=== PATIENT | female | born 1935 | race Caucasian/White ===

== ENCOUNTER → 2016-12-01 | Outpatient (CLI) | payer OTHER ==
[~2016-12-01] MED LIST: ALEN70TA5 PO; ASCO-96 PO; ASPI-496 PO; ENAL20TA PO; FOLI0.8T2 PO; HYDR1TAB16 PO; MULT-308 PO; SIMV10TA3 PO; VITA1TAB68 PO
== END | disposition home or self-care (01) ==
LOC: CFH 09:52 → EDSTATUS 10:15
PROVIDERS: ATTEND Family Medicine
DX: M75.101 Unspecified rotator cuff tear or rupture of right shoulder, not specified as traumatic (principal); S43.081A Other subluxation of right shoulder joint, initial encounter; M25.411 Effusion, right shoulder; M62.58 Muscle wasting and atrophy, not elsewhere classified, other site; X58.XXXA Exposure to other specified factors, initial encounter; Y93.89 Activity, other specified; Y92.89 Other specified places as the place of occurrence of the external cause; Y99.8 Other external cause status

== ENCOUNTER → 2017-06-22 | Outpatient (CLI) | payer OTHER ==
[~2017-06-22] MED LIST changes: +HYDR-3307 PO; +LATA2.5D3 RIGHTEYE; +SIMV40TA3 PO; +TRAM50TA2 PO; +areds PO
[2017-06-22 11:10] LABS: BASOPHILS # (AUTO) 0.08 x10^3/uL (0-0.1); BASOPHILS % (AUTO) 1 % (0-1); EOSINOPHILS # (AUTO) 0.19 x10^3/uL (0-0.4); EOSINOPHILS % (AUTO) 2 % (1-7); LYMPHOCYTES # (AUTO) 1.92 x10^3/uL (1-3.4); LYMPHOCYTES % (AUTO) 23 % (22-44); MD NO; MEAN CORPUSCULAR HEMOGLOBIN 28.7 pg (27.0-34.8); MEAN CORPUSCULAR HGB CONC 32.6 g/dL (32.4-35.8); MEAN CORPUSCULAR VOLUME 88.1 fL (80-100); MEAN PLATELET VOLUME 7.3 fL (7.4-10.4); MONOCYTES # (AUTO) 0.67 x10^3/uL (0.2-0.8); MONOCYTES % (AUTO) 8 % (2-9); NEUTROPHILS # (AUTO) 5.45 x10^3/uL (1.8-6.8); NEUTROPHILS % (AUTO) 66 % (42-75); PLATELET COUNT 292 x10^3/uL (130-400); RED BLOOD COUNT 4.89 x10^6/uL (3.82-5.3)
[2017-06-22 11:25] LABS: ALBUMIN 3.8 g/dL (3.4-5.0); ANION GAP 8 mmol/L (5-15); CALCIUM 9.7 mg/dL (8.5-10.1); CHLORIDE 107 mmol/L (98-107)
[2017-06-22 11:28] LABS: ALANINE AMINOTRANSFERASE 30 U/L (12-78); ALKALINE PHOSPHATASE 120 U/L (45-117); BILIRUBIN,TOTAL 0.5 mg/dL (0.2-1.0); CREATININE 1.02 mg/dL (0.55-1.02); TOTAL PROTEIN 7.8 g/dL (6.4-8.2)
== END | disposition home or self-care (01) ==
LOC: STAR 10:06
PROVIDERS: ATTEND Obstetrics & Gynecology Female Pelvic Medicine and Reconstructive Surgery
DX: K44.9 Diaphragmatic hernia without obstruction or gangrene (principal); N81.4 Uterovaginal prolapse, unspecified; K46.9 Unspecified abdominal hernia without obstruction or gangrene; R35.0 Frequency of micturition; N39.3 Stress incontinence (female) (male); I10 Essential (primary) hypertension
CPT/HCPCS: 36415; 71046; 80053; 85025; 93005

== ENCOUNTER 2017-07-18 12:09 | Day surgery (SDC) | payer OTHER ==
[2017-06-22 10:35] VITALS: BP 173/82
[~2017-07-18] VITALS: Ht 157.5 cm; Wt 68.3 kg
[~2017-07-18 12:09] MED LIST changes: +FENTANYL PF 250 MCG/5ML ONE; +MIDAZOLAM 1 MG/ML, 2ML ONE
[2017-07-18] MEDS ORDERED: BUPIVACAINE/PF 0.25% ONE (12:21)
[2017-07-18] MEDS ORDERED: ESTROGENS CONJUGATED VAG CRM 0.625MG/1G, 30GM ONE (12:21)
[2017-07-18] MEDS ORDERED: VANCOMYCIN 500 MG ONE (12:22)
[2017-07-18] MEDS ORDERED: THROMBIN 5,000 UNIT VIAL TP ONE ×2 (12:22→13:21)
[2017-07-18] MEDS ORDERED: EPINEPHRINE 1 MG/ML, 1ML ONE (12:22)
[2017-07-18] MEDS ORDERED: GENTAMICIN 80 MG/2 ML ONE (12:22)
[2017-07-18] MEDS ORDERED: LACTATED RINGERS 1,000 ML IV SCH ×2 (12:28→14:53)
[2017-07-18] MEDS ORDERED: LIDOCAINE 1%, 2ML SQ PRN (12:30)
[2017-07-18 12:32] VITALS: BP 173/82
[2017-07-18] MEDS ORDERED: PHENYLEPHRINE 10 MG/ML ONE (12:46)
[2017-07-18] MEDS ORDERED: ROCURONIUM 10MG/ML,5ML ONE (12:46)
[2017-07-18] MEDS ORDERED: SUCCINYLCHOLINE 20 MG/ML, 10ML ONE (12:46)
[2017-07-18] MEDS ORDERED: BUPIVACAINE/PF-EPI 0.25% 1:200K IM ONE (13:20)
[2017-07-18] MEDS ORDERED: ONDANSETRON 2MG/ML, 2ML ONE (13:52)
[2017-07-18] MEDS ORDERED: CEFAZOLIN 1,000 MG ONE (13:52)
[2017-07-18] MEDS ORDERED: PROPOFOL 10 MG/ML, 20ML ONE (13:52)
[2017-07-18] MEDS ORDERED: DEXAMETHASONE 4 MG/ML, 1ML ONE (13:52)
[2017-07-18] MEDS ORDERED: ALBUTEROL/IPRATROPIUM 2.5MG/0.5MG, 3 ML NPPB PRN (14:00)
[2017-07-18] MEDS ORDERED: MEPERIDINE/PF 25MG/0.5ML IVPush PRN (14:00)
[2017-07-18] MEDS ORDERED: LABETALOL 5MG/ML, 20ML IV PRN (14:00)
[2017-07-18] MEDS ORDERED: PROMETHAZINE 12.5 MG SUPP PR PRN (14:00)
[2017-07-18] MEDS ORDERED: HYDROmorphone 1 MG/ML, 1ML IV PRN (14:00)
[2017-07-18] MEDS ORDERED: hydrALAzine 20 MG/ML, 1ML IV PRN (14:00)
[2017-07-18] MEDS ORDERED: FENTANYL PF 100 MCG/2ML IV PRN (14:00)
[2017-07-18] MEDS ORDERED: ONDANSETRON 2MG/ML, 2ML IVPush PRN ×2 (14:00→15:00)
[2017-07-18] MEDS ORDERED: MIDAZOLAM 1 MG/ML, 2ML IV PRN (14:00)
[2017-07-18] MEDS ORDERED: ACETAMINOPHEN 325 MG TABLET PO PRN (14:00)
[2017-07-18] MEDS ORDERED: OXYcodone 5 MG/5 ML ORAL.SOL UDC PO PRN (14:00)
[2017-07-18] MEDS ORDERED: METRONIDAZOLE PMX 500MG/100ML 100 ML ONE (14:22)
[2017-07-18] MEDS ORDERED: VASOPRESSIN 20 UNIT/ML, 1ML ONE (14:25)
[2017-07-18] MEDS ORDERED: EPHEDRINE 50 MG/ML, 1ML ONE (14:25)
[2017-07-18] MEDS ORDERED: PROMETHAZINE 12.5 MG SUPP PR ONE (15:00)
[2017-07-18] MEDS ORDERED: HYDROcodone/APAP 5/325 TABLET PO PRN (15:00)
[2017-07-18] MEDS ORDERED: OXYcodone 5 MG/5 ML ORAL.SOL UDC ONE (15:07)
[2017-07-18] MEDS ORDERED: ACETAMINOPHEN 650 MG/20.3 ML UDC ONE (15:07)
== END 2017-07-18 17:10 ==
LOC: OUT 12:09
PROVIDERS: ATTEND Obstetrics & Gynecology Female Pelvic Medicine and Reconstructive Surgery
DX: N81.4 Uterovaginal prolapse, unspecified (principal); N39.46 Mixed incontinence; I10 Essential (primary) hypertension; E78.5 Hyperlipidemia, unspecified; G89.29 Other chronic pain; Z87.39 Personal history of other diseases of the musculoskeletal system and connective tissue; Z98.890 Other specified postprocedural states
CPT/HCPCS: 57120; 57288; 58120; 88305; J0171; J0330; J0690; J1100; J1580; J2370; J2405; J2704; J3010; J3370; J3490; J7120; J2250; C1771

== ENCOUNTER → 2018-09-11 | Outpatient (CLI) | payer MEDICARE ==
[~2018-09-11] MED LIST changes: -ALEN70TA5 PO; +ALEN70TA6 PO; -FENTANYL PF 250 MCG/5ML ONE; -MIDAZOLAM 1 MG/ML, 2ML ONE
[2018-09-11 15:39] LABS: BASOPHILS % (AUTO) 2 % (0-1); EOSINOPHILS # (AUTO) 0.16 x10^3/uL (0-0.4); EOSINOPHILS % (AUTO) 2 % (1-7); LYMPHOCYTES # (AUTO) 2.14 x10^3/uL (1-3.4); LYMPHOCYTES % (AUTO) 33 % (22-44); MD NO; MEAN CORPUSCULAR HEMOGLOBIN 28.2 pg (27.0-34.8); MEAN CORPUSCULAR HGB CONC 32.3 g/dL (32.4-35.8); MEAN CORPUSCULAR VOLUME 87.2 fL (80-100); MEAN PLATELET VOLUME 7.5 fL (7.4-10.4); MONOCYTES % (AUTO) 9 % (2-9); NEUTROPHILS % (AUTO) 55 % (42-75); PLATELET COUNT 296 x10^3/uL (130-400); RED BLOOD COUNT 4.88 x10^6/uL (3.82-5.3); RED CELL DISTRIBUTION WIDTH 15.2 % (9.6-15.2)
[2018-09-11 15:42] LABS: ALANINE AMINOTRANSFERASE 33 U/L (12-78); ALBUMIN 3.9 g/dL (3.4-5.0); ANION GAP 7 mmol/L (5-15); CALCIUM 9.8 mg/dL (8.5-10.1); CHLORIDE 108 mmol/L (98-107); CREATININE 1.27 mg/dL (0.55-1.02)
[2018-09-11 15:44] LABS: ALKALINE PHOSPHATASE 155 U/L (45-117); BILIRUBIN,TOTAL 0.2 mg/dL (0.2-1.0); TOTAL PROTEIN 7.4 g/dL (6.4-8.2)
== END | disposition home or self-care (01) ==
LOC: STAR 14:39
PROVIDERS: ATTEND Obstetrics & Gynecology Female Pelvic Medicine and Reconstructive Surgery
DX: K44.9 Diaphragmatic hernia without obstruction or gangrene (principal); I10 Essential (primary) hypertension
CPT/HCPCS: 36415; 71046; 80053; 85025; 93005

== ENCOUNTER 2018-09-25 13:01 | Day surgery (SDC) | payer MEDICARE ==
[~2018-09-25] VITALS: Ht 154.9 cm; Wt 63.6 kg
[~2018-09-25 13:01] MED LIST changes: +BUPIVACAINE/PF 0.25% ONE
[2018-09-25] MEDS ORDERED: LACTATED RINGERS 1,000 ML IV SCH ×2 (13:32→16:09)
[2018-09-25] MEDS ORDERED: FENTANYL PF 250 MCG/5ML ONE (13:47)
[2018-09-25] MEDS ORDERED: ROCURONIUM 10MG/ML,5ML ONE (13:49)
[2018-09-25] MEDS ORDERED: DEXAMETHASONE 4 MG/ML, 1ML ONE (13:49)
[2018-09-25] MEDS ORDERED: ONDANSETRON 2MG/ML, 2ML ONE (13:49)
[2018-09-25] MEDS ORDERED: PROPOFOL 10 MG/ML, 20ML ONE (13:49)
[2018-09-25] MEDS ORDERED: GLYCOPYRROLATE 0.2MG/1ML, 5ML ONE (13:49)
[2018-09-25] MEDS ORDERED: CEFOTETAN PMX 2GM/50ML 0 ML ONE (13:49)
[2018-09-25] MEDS ORDERED: NEOSTIGMINE 1 MG/ML, 10ML ONE (13:49)
[2018-09-25 13:55] VITALS: BP 182/81
[2018-09-25] MEDS ORDERED: GABAPENTIN 300 MG CAPSULE PO ONE (14:00)
[2018-09-25] MEDS ORDERED: ACETAMINOPHEN 500 MG TABLET PO ONE (14:00)
[2018-09-25] MEDS ORDERED: PHENYLEPHRINE 10 MG/ML ONE (14:59)
[2018-09-25] MEDS ORDERED: CEFAZOLIN 1,000 MG ONE (14:59)
[2018-09-25] MEDS ORDERED: HALOPERIDOL 5 MG/ML IV PRN (15:00)
[2018-09-25] MEDS ORDERED: FENTANYL PF 100 MCG/2ML IV PRN (15:00)
[2018-09-25] MEDS ORDERED: PROMETHAZINE 25 MG/ML, 1ML IM PRN ×2 (15:00)
[2018-09-25] MEDS ORDERED: MORPHINE SULFATE 4 MG/ML, 1ML IVPush PRN (15:00)
[2018-09-25] MEDS ORDERED: PROMETHAZINE 25 MG SUPP PR PRN (15:00)
[2018-09-25] MEDS ORDERED: ONDANSETRON ODT 8 MG PO PRN (15:00)
[2018-09-25] MEDS ORDERED: OXYcodone 5 MG/5 ML ORAL.SOL UDC PO PRN (15:00)
[2018-09-25] MEDS ORDERED: MEPERIDINE/PF 25MG/0.5ML IVPush PRN (15:00)
[2018-09-25] MEDS ORDERED: hydrALAzine 20 MG/ML, 1ML IV PRN (15:00)
[2018-09-25] MEDS ORDERED: ONDANSETRON 2MG/ML, 2ML IV PRN (15:00)
[2018-09-25] MEDS ORDERED: HYDROmorphone 2 MG/ML, 1ML IVPush PRN (15:00)
[2018-09-25] MEDS ORDERED: PROMETHAZINE 12.5 MG SUPP PR PRN (15:00)
[2018-09-25] MEDS ORDERED: PROMETHAZINE 25 MG/ML, 1ML IV PRN (15:00)
[2018-09-25] MEDS ORDERED: LABETALOL 5MG/ML, 20ML IV PRN (15:00)
[2018-09-25] MEDS ORDERED: THROMBIN 20,000 UNIT VIAL TP ONE (15:21)
[2018-09-25] MEDS ORDERED: HYDROcodone/APAP 5/325 TABLET PO PRN (16:30)
[2018-09-25] MEDS ORDERED: IBUPROFEN 600 MG TABLET PO PRN (16:30)
[2018-09-25] MEDS ORDERED: ONDANSETRON 2MG/ML, 2ML IVPush PRN (16:30)
[2018-09-25] MEDS ORDERED: OXYcodone 5 MG/5 ML ORAL.SOL UDC ONE (16:32)
== END 2018-09-25 18:50 | disposition home or self-care (01) ==
LOC: OUT 13:01
PROVIDERS: ATTEND Obstetrics & Gynecology Female Pelvic Medicine and Reconstructive Surgery
DX: N81.5 Vaginal enterocele (principal); I10 Essential (primary) hypertension; E78.5 Hyperlipidemia, unspecified; G43.909 Migraine, unspecified, not intractable, without status migrainosus; Z87.39 Personal history of other diseases of the musculoskeletal system and connective tissue; Z86.73 Personal history of transient ischemic attack (TIA), and cerebral infarction without residual deficits; Z98.890 Other specified postprocedural states
CPT/HCPCS: 57120; J0690; J1100; J2370; J2405; J2704; J2710; J3010; J3490; J7120

== ENCOUNTER 2020-09-11 14:55 | Inpatient (IN) | payer MEDICARE ==
[~2020-09-11] VITALS: Ht 152.4 cm; Wt 70.5 kg
[~2020-09-11 14:55] MED LIST changes: -ALEN70TA6 PO; +ALEN70TA77 PO; -BUPIVACAINE/PF 0.25% ONE; -ENAL20TA PO; +ENAL20TA9 PO; -FOLI0.8T2 PO; +FOLI0.8T5 PO; +HYDR-3248 PO; -HYDR-3307 PO; -LATA2.5D3 RIGHTEYE; +LATA2.5D4 RIGHTEYE; +SIMV10TA18 PO; -SIMV10TA3 PO; +SIMV40TA20 PO; -SIMV40TA3 PO
[2020-09-11] MEDS ORDERED: MORPHINE SULFATE 4 MG/ML, 1ML ONE (15:44)
[2020-09-11] MEDS ORDERED: ONDANSETRON 2MG/ML, 2ML ONE (15:44)
--- NOTE | 2020-09-11 15:50 | NUR ---
PIV PLACED, LABS DRAWN AND SENT WITH LAB SLIP. MEDS ADMIN PER AUG. DAUGHTER AT BEDSIDE.
[2020-09-11 15:52] LABS: BASOPHILS % (AUTO) 1 % (0-1); EOSINOPHILS % (AUTO) 3 % (1-7); LYMPHOCYTES % (AUTO) 24 % (22-44); MEAN CORPUSCULAR HEMOGLOBIN 28.5 pg (27.0-34.8); MEAN CORPUSCULAR HGB CONC 32.5 g/dL (32.4-35.8); MONOCYTES % (AUTO) 10 % (2-9); NEUTROPHILS % (AUTO) 62 % (42-75); PLATELET COUNT 367 x10^3/uL (130-400); RED BLOOD COUNT 4.62 x10^6/uL (3.82-5.3); RED CELL DISTRIBUTION WIDTH 15.5 % (9.6-15.2)
[2020-09-11 15:55] LABS: MD NO
[2020-09-11] MEDS ORDERED: ONDANSETRON 2MG/ML, 2ML IVPush ONE (16:00)
[2020-09-11] MEDS ORDERED: MORPHINE SULFATE 4 MG/ML, 1ML IVPush PRN (16:00)
[2020-09-11] MEDS ORDERED: SODIUM CHLORIDE FLUSH 10ML SYR IVF ONE (16:00)
--- NOTE | 2020-09-11 16:00 | NUR ---
PT STATES UNABLE TO TRANSFER TO BEDSIDE COMMODE AT THIS TIME. PER ERPA, OK TO CHANGE UA COLLECTED TO STRAIGHT CATH. UA COLLECTED VIA STRAIGHT CATH AND TAKEN TO LAB. PT STATES PAIN IS BETTER AFTER PAIN MEDS.
[2020-09-11 16:02] LABS: ALBUMIN 3.3 g/dL (3.4-5.0); ANION GAP 5 mmol/L (5-15); CALCIUM 9.1 mg/dL (8.5-10.1); CHLORIDE 118 mmol/L (98-107); CREATININE 0.95 mg/dL (0.55-1.02)
[2020-09-11 16:09] LABS: MICROSCOPIC NOT IND
--- NOTE | 2020-09-11 16:29 | NUR ---
ALL RESULTS ARE BACK AT THIS TIME. CHART UP FOR RECHECK.
--- NOTE | 2020-09-11 19:32 | NUR ---
PER IR, PT TO BE NPO AT MIDNIGHT.
--- NOTE | 2020-09-11 20:10 | NUR ---
REPORT GIVEN TO ROBIN GONZALEZ. PT RTG TO ROOM [phone]
[2020-09-11] MEDS ORDERED: hydrALAzine 20 MG/ML, 1ML IVPush PRN (21:00)
[2020-09-11] MEDS ORDERED: PROMETHAZINE 25 MG/ML, 1ML IM PRN (21:00)
[2020-09-11] MEDS ORDERED: ACETAMINOPHEN 325 MG TABLET PO PRN (21:00)
[2020-09-11] MEDS ORDERED: ONDANSETRON 2MG/ML, 2ML IVPush PRN (21:00)
[2020-09-11] MEDS ORDERED: ONDANSETRON ODT 4 MG PO PRN (21:00)
[2020-09-11] MEDS: SODIUM CHLORIDE 0.9% 1,000 ML IV SCH (21:00)
[2020-09-11] MEDS ORDERED: BISACODYL 10 MG SUPP PR PRN (21:00)
[2020-09-11 21:15] VITALS: BP 119/76
[2020-09-11] MEDS: HYDROcodone/APAP 5/325 TABLET PO PRN (21:27)
[2020-09-11] MEDS: METHOCARBAMOL 500 MG TABLET PO PRN (21:27)
[2020-09-11] MEDS: SIMVASTATIN 10 MG TABLET PO SCH (21:27)
[2020-09-11] MEDS ORDERED: ENOXAPARIN 40 MG/0.4 ML SQ SCH (22:00)
[2020-09-11] MEDS: GABAPENTIN 100 MG CAPSULE PO SCH (22:23)
[2020-09-11] MEDS: LATANOPROST OPHTH 0.005%, 2.5ML RIGHTEYE SCH (22:23)
[2020-09-12 01:32] VITALS: BP 118/75
[2020-09-12] MEDS: HYDROcodone/APAP 5/325 TABLET PO PRN (01:34)
[2020-09-12 05:46] LABS: BASOPHILS % (AUTO) 1 % (0-1); EOSINOPHILS % (AUTO) 4 % (1-7); LYMPHOCYTES % (AUTO) 29 % (22-44); MEAN CORPUSCULAR HEMOGLOBIN 28.8 pg (27.0-34.8); MEAN CORPUSCULAR HGB CONC 32.6 g/dL (32.4-35.8); MONOCYTES % (AUTO) 10 % (2-9); NEUTROPHILS % (AUTO) 56 % (42-75); PLATELET COUNT 319 x10^3/uL (130-400); RED BLOOD COUNT 3.92 x10^6/uL (3.82-5.3); RED CELL DISTRIBUTION WIDTH 15.8 % (9.6-15.2)
[2020-09-12 05:57] LABS: ALBUMIN 2.8 g/dL (3.4-5.0); ANION GAP 5 mmol/L (5-15); CALCIUM 8.2 mg/dL (8.5-10.1); CHLORIDE 119 mmol/L (98-107)
[2020-09-12 06:05] LABS: ALANINE AMINOTRANSFERASE 29 U/L (12-78); ALKALINE PHOSPHATASE 111 U/L (45-117); BILIRUBIN,TOTAL 0.2 mg/dL (0.2-1.0); CHOL/HDL RATIO 3.4; CHOLESTEROL, TOTAL 117 mg/dL (140-239); CREATININE 1.16 mg/dL (0.55-1.02); HDL CHOL % 29 % (28-40); HDL CHOLESTEROL (DIRECT) 34 mg/dL (40-60); LDL CHOLESTEROL,CALCULATED 49 mg/dL (54-169); LDL/HDL RATIO 1.4 (0.5-3.0); TOTAL PROTEIN 6.2 g/dL (6.4-8.2); TRIGLYCERIDES 172 mg/dL (50-200); VLDL CHOLESTEROL 34 mg/dL (0-25)
[2020-09-12] MEDS: GABAPENTIN 100 MG CAPSULE PO SCH ×4 (06:07→20:35)
[2020-09-12 06:12] LABS: MD NO
[2020-09-12 07:09] VITALS: BP 99/65
[2020-09-12] MEDS: SODIUM CHLORIDE 0.9% 1,000 ML IV SCH (07:21)
[2020-09-12] MEDS: ASPIRIN 81 MG TABLET EC PO SCH (09:00)
[2020-09-12] MEDS: ENALAPRIL 20MG TABLET PO SCH (09:00)
[2020-09-12] MEDS: FOLIC ACID 1 MG TABLET PO SCH (09:00)
[2020-09-12] MEDS: MULTIVITS,STRESS FORMULA 1 TABLET PO SCH (09:00)
[2020-09-12] MEDS: MULTIVITAMINS WITH IRON TABLET PO SCH (09:00)
[2020-09-12] MEDS ORDERED: FENTANYL PF 100 MCG/2ML IV PRN (10:00)
[2020-09-12] MEDS ORDERED: LABETALOL 5MG/ML, 20ML IV PRN (10:00)
[2020-09-12] MEDS ORDERED: HALOPERIDOL 5 MG/ML IV PRN (10:00)
[2020-09-12] MEDS ORDERED: HYDROmorphone 1 MG/ML, 1ML INJ IVPush PRN (10:00)
[2020-09-12] MEDS ORDERED: PROMETHAZINE 25 MG/ML, 1ML IVPush PRN (10:00)
[2020-09-12] MEDS ORDERED: hydrALAzine 20 MG/ML, 1ML IV PRN (10:00)
[2020-09-12] MEDS ORDERED: OXYcodone 5 MG/5 ML ORAL.SOL UDC PO PRN (10:00)
[2020-09-12] MEDS ORDERED: LIDOCAINE 1%, 20ML ONE (10:04)
[2020-09-12] MEDS ORDERED: FENTANYL PF 100 MCG/2ML ONE (10:11)
[2020-09-12] MEDS ORDERED: EPHEDRINE 50 MG/ML, 1ML ONE (10:14)
[2020-09-12] MEDS ORDERED: DEXAMETHASONE 4 MG/ML, 1ML ONE (11:37)
[2020-09-12] MEDS ORDERED: GLYCOPYRROLATE 0.2MG/1ML, 5ML ONE (11:37)
[2020-09-12] MEDS ORDERED: ROCURONIUM 10MG/ML,5ML ONE (11:37)
[2020-09-12] MEDS ORDERED: NEOSTIGMINE 1 MG/ML, 10ML ONE (11:37)
[2020-09-12] MEDS ORDERED: ONDANSETRON 2MG/ML, 2ML ONE (11:37)
[2020-09-12] MEDS ORDERED: PROPOFOL 10 MG/ML, 20ML ONE (11:37)
[2020-09-12] MEDS ORDERED: SUCCINYLCHOLINE 20 MG/ML, 10ML ONE (11:37)
[2020-09-12] MEDS ORDERED: CEFAZOLIN 1,000 MG ONE (11:37)
[2020-09-12 12:51] VITALS: BP 126/83
[2020-09-12] MEDS: POLYETHYLENE GLYCOL 17 GM PACKET PO PRN (16:23)
[2020-09-12] MEDS: DOCUSATE 100 MG CAPSULE PO PRN ×2 (16:23→20:47)
[2020-09-12 20:31] VITALS: BP 141/73
[2020-09-12] MEDS: SIMVASTATIN 10 MG TABLET PO SCH (20:35)
[2020-09-12] MEDS: LATANOPROST OPHTH 0.005%, 2.5ML RIGHTEYE SCH (20:35)
[2020-09-12] MEDS: METHOCARBAMOL 500 MG TABLET PO PRN (20:47)
[2020-09-13 00:30] VITALS: BP 110/71
[2020-09-13] MEDS: HYDROcodone/APAP 5/325 TABLET PO PRN ×2 (03:13→11:45)
[2020-09-13 05:04] VITALS: BP 133/79
[2020-09-13] MEDS: GABAPENTIN 100 MG CAPSULE PO SCH ×2 (05:58→10:28)
[2020-09-13] MEDS ORDERED: ALENDRONATE 70 MG TABLET PO SCH (06:30)
[2020-09-13 07:31] VITALS: BP 109/70
[2020-09-13] MEDS: DOCUSATE 100 MG CAPSULE PO PRN (08:42)
[2020-09-13] MEDS: MULTIVITS,STRESS FORMULA 1 TABLET PO SCH (08:42)
[2020-09-13] MEDS: POLYETHYLENE GLYCOL 17 GM PACKET PO PRN (08:42)
[2020-09-13] MEDS: FOLIC ACID 1 MG TABLET PO SCH (08:43)
[2020-09-13] MEDS: ASPIRIN 81 MG TABLET EC PO SCH (08:43)
[2020-09-13] MEDS: MULTIVITAMINS WITH IRON TABLET PO SCH (08:43)
[2020-09-13] MEDS: ENALAPRIL 20MG TABLET PO SCH (08:43)
[2020-09-13] MEDS ORDERED: ENOXAPARIN 30 MG/0.3 ML SQ SCH (09:00)
[2020-09-13] MEDS ORDERED: ACET325T26 PO (12:23)
[2020-09-13 15:00] VITALS: BP_SYST 128; BP_SYST 148; BP_DIAS 64
== END 2020-09-13 15:50 | disposition home or self-care (01) | DRG 517 ==
LOC: ED 18:36 → EDIP 18:45 → 4NE 21:09 → DCLOUNGE 09-13 15:33
PROVIDERS: ADMIT Internal Medicine; ATTEND Internal Medicine
PROC: 0T9B70Z Drainage of Bladder with Drainage Device, Via Natural or Artificial Opening (ICD-10-PCS; 2020-09-11)
PROC: 0QU03JZ Supplement Lumbar Vertebra with Synthetic Substitute, Percutaneous Approach (ICD-10-PCS; 2020-09-12)
PROC: 0QS03ZZ Reposition Lumbar Vertebra, Percutaneous Approach (ICD-10-PCS; principal; 2020-09-12 11:00)
DX: M80.08XA Age-related osteoporosis with current pathological fracture, vertebra(e), initial encounter for fracture (principal); E78.5 Hyperlipidemia, unspecified; I10 Essential (primary) hypertension; Z96.653 Presence of artificial knee joint, bilateral; K59.00 Constipation, unspecified; Z79.899 Other long term (current) drug therapy; R33.9 Retention of urine, unspecified; W18.30XA Fall on same level, unspecified, initial encounter; Z20.822 Contact with and (suspected) exposure to COVID-19
CPT/HCPCS: 22514; 36415; 80048; 80053; 80061; 81003; 82040; 83036; 83735; 84100; 84443; 85025; 87635; 96374; 96375; 99285; G0378; J0690; J1100; J1650; J2405; J2704; J2710; J3010; C9359; J0330; J2270; J7030